=== PATIENT | male | born 1960 | race African-American/Black ===

== ENCOUNTER 2017-09-07 03:17 | Emergency (ER) | payer OTHER, MEDICAID | END 2017-09-07 05:23 | disposition left against medical advice (07) | LOC: E/R 03:17 | DX: F10.129 Alcohol abuse with intoxication, unspecified (principal); F91.8 Other conduct disorders; R41.82 Altered mental status, unspecified; I10 Essential (primary) hypertension; E11.9 Type 2 diabetes mellitus without complications; F17.210 Nicotine dependence, cigarettes, uncomplicated; Z79.84 Long term (current) use of oral hypoglycemic drugs | CPT/HCPCS: 99283-25; Z7502 ==